=== PATIENT | female | born 1940 | race Caucasian/White ===

== ENCOUNTER 2020-07-01 12:38 | Outpatient (REF) | payer MEDICAID, SELFPAY ==
--- NOTE | ~2020-07-01 | MM_ITS ---
EXAMINATION: BONE DENSITOMETRY CLINICAL INDICATION: Osteoporosis. COMPARISON: This is the patient's baseline examination. TECHNIQUE: Using a [employer] DXA System (software version: 13.1) manufactured by [employer], dual-energy x-ray absorptiometry was performed of the lumbar spine and left hip. The images are of good technical quality. Summary results are attached. FINDINGS: AP SPINE L1-L4: BMD 0.758 g/cm2, Z-score -1.5, T-score -3.5, osteoporosis. LEFT FEMUR, NECK: BMD 0.754 g/cm2, Z-score 0.1, T-score -2.0, osteopenia. LEFT FEMUR, TOTAL: BMD 0.756 g/cm2, Z-score 0.0, T-score -2.0, osteopenia. IDENTIFIED RISK FACTORS: Menopause, thiazide. HISTORY OF FRACTURE: None listed. MEDICATIONS: Calcium supplements or multivitamin. MM/XR DEXA axial skeleton IMPRESSION: 1. DIAGNOSIS: Osteoporosis based on the lowest T-score value of -3.5 in the lumbar spine applying World Health Organization criteria. 2. 10-YEAR FRACTURE RISK PREDICTION, FRAX: Major osteoporotic fracture (clinical spine, forearm, hip or shoulder) 9.2%. Hip fracture 2.6%. 3. Treatment Recommendations: NOF guidelines recommend consideration for treatment in postmenopausal women and men age 50 and older presenting with the following: -A hip or vertebral (clinical or morphometric) fracture. -T-score less than or equal to -2.5 at the femoral neck or spine after appropriate evaluation to exclude secondary causes. -Low bone mass at the hip or spine and a 10-year fracture probability by FRAX of greater than or equal to 3% for hip fracture or greater than or equal to 20% for major osteoporotic fracture based on the [place] adapted WHO algorithm. 4. Other Recommendations: All treatment decisions require clinical judgment and consideration of individual patient factors, including patient preferences, comorbidities, previous drug use, risk factors not captured in the FRAX model (e.g. frailty, falls, vitamin D deficiency, increased bone turnover, interval significant decline in bone density) and possible under or overestimation of fracture risk by FRAX. Additional medical evaluation for secondary cause of low bone mineral density may be appropriate. FUTURE SCAN RECOMMENDATION: People with diagnosed cases of osteoporosis or at high risk for fracture should have regular bone mineral density tests. For patients eligible for Medicare, routine testing is allowed once every 2 years. The testing frequency can be increased to one year for patients who have rapidly progressing disease, those who are receiving or discontinuing medical therapy to restore bone mass, or have additional risk factors.
== END 2020-07-01 12:39 | disposition home or self-care (01) ==
LOC: HO.MAMMO 12:38
PROVIDERS: PCP Internal Medicine; Visit Provider Internal Medicine
DX: Z13.820 Encounter for screening for osteoporosis (principal); M81.0 Age-related osteoporosis without current pathological fracture; Z78.0 Asymptomatic menopausal state; Z79.899 Other long term (current) drug therapy
CPT/HCPCS: 77080

== ENCOUNTER 2021-04-25 10:44 | Emergency (ER) | payer MEDICAID, SELFPAY ==
--- NOTE | ~2021-04-25 | CT_ITS ---
EXAMINATION: CT ABDOMEN AND PELVIS WITH CONTRAST CLINICAL INFORMATION: Bilateral flank pain COMPARISON: None TECHNIQUE: Multidetector volumetric images were obtained from the superior aspect of the liver through the pubic symphysis following administration 85 mL of Omnipaque 350 intravenous contrast. Sagittal and coronal reformatted images were obtained on the technologist's workstation. Oral contrast: Yes This CT examination was performed using dose optimization techniques as appropriate, variously including the following: *Automated exposure control *Adjustment of mA and/or kV according to patient size (this includes techniques or standardized protocols for targeted exams where dose is matched to indication/reason for exam; i.e. extremities or head) *Use of iterative reconstruction technique DLP: 385 mGy-cm FINDINGS: LUNG BASES: The visualized lung bases are unremarkable. LIVER, GALLBLADDER, AND BILIARY TREE: The liver is normal in size, shape, and attenuation. No focal hepatic lesion or biliary ductal dilatation is present. The gallbladder is unremarkable with no evidence of radiopaque gallstones, gallbladder wall thickening, or obvious pericholecystic inflammatory changes. PANCREAS: Unremarkable. SPLEEN: Unremarkable. ADRENAL GLANDS: Unremarkable. KIDNEYS AND URETERS: The kidneys are normal in size, shape, and attenuation. No hydronephrosis, hydroureter, or calculi seen. No perinephric stranding. BLADDER: Unremarkable. GASTROINTESTINAL TRACT: There is mild diverticulosis of the colon. No evidence of diverticulitis The small and large bowel are otherwise unremarkable. The appendix is is not seen. There are no inflammatory changes seen in the right lower quadrant. ABDOMINAL WALL: No significant hernia is appreciated. LYMPH NODES: Normal. VASCULAR: Unremarkable. PELVIC VISCERA: Unremarkable. OSSEOUS STRUCTURES: There is a mild scoliosis and degenerative changes of the spine. CT/CT abdomen pelvis w con IMPRESSION: No stone or hydronephrosis seen. Mild diverticulosis. No evidence of diverticulitis. Fleischner guidelines were followed.
[2021-04-25 11:58] VITALS: BP 147/63; PULSE 73; RESP 18; TEMP 36.9; O2SAT 98; BMI 23.3
--- NOTE | 2021-04-25 12:03 | ECG_ITS ---
Test Reason : ABD PAIN Blood Pressure : / mmHG Vent. 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
--- NOTE | 2021-04-25 12:20 | ED.GENADULT ---
HPI - General Adult General Chief complaint: General Medical Stated complaint: Back/abd pain Time Seen by Provider: 04/25/21 12:38 Source: patient Mode of arrival: ambulatory Limitations: no limitations History of Present Illness HPI narrative: 81-year-old female with past medical history of cardiac stent presents to the ED for back pain and lower bilateral flank pain that is worse on movement. Patient states also constipation. Patient states having both symptoms for the past 4 days. Patient states she 1st felt the lower back bilateral flank pain while doing multiple sets of sit-ups. Daughter states her mom is still active doing extraneous exercises such as sit-ups lying flat and than trying to touch her toes while laying flat and pushups. Patient states every time she bends down she also has back pain. Patient denies any dysuria, hematuria, fever, chills, blunt trauma chest pain, or shortness of breath. Patient states lower abdominal cramping due to constipation for the past 3 days. Patient states no nausea or vomiting. Related Data Home Medications Medication Instructions Recorded Confirmed alendronate 70 mg tablet 70 mg PO MORENO@0630 04/25/21 04/25/21 aspirin 81 mg chewable tablet 81 mg PO DAILY 04/25/21 04/25/21 atorvastatin 80 mg tablet 80 mg PO DAILY 04/25/21 04/25/21 cholecalciferol (vitamin D3) 25 25 mcg PO DAILY 04/25/21 04/25/21 mcg (1,000 unit) capsule clopidogrel 75 mg tablet 75 mg PO DAILY 04/25/21 04/25/21 hydrochlorothiazide 12.5 mg tablet 12.5 mg PO DAILY 04/25/21 04/25/21 metoprolol succinate 25 mg 25 mg PO DAILY 04/25/21 04/25/21 tablet,extended release 24 hr Previous Rx's Medication Instructions Recorded acetaminophen 325 mg capsule 325 mg PO QID PRN 7 Days #28 cap 04/25/21 (Tylenol) cyclobenzaprine 10 mg tablet 10 mg PO BEDTIME PRN 9 Days #9 tab 04/25/21 prednisone 20 mg tablet 40 mg PO DAILY 5 Days #10 tab 04/25/21 Allergies Allergy/AdvReac Type Severity Reaction Status Date / Time No Known Allergies Allergy Unverified 11/05/19 19:53 [No Known Allergies*] Review of Systems Review of Systems: Low back bilateral flank pain worse on movement. And constipation for the past 3 days Yes all other systems are reviewed and are negative [facility] Past Medical History Medical History (Updated 04/25/21 @ 18:37 by GLADYS Linton) Accelerated hypertension Surgical History (Updated 04/25/21 @ 12:02 by Elise Mann) Stented coronary artery Social History Social History Patient Tobacco Use Status: Never used Tobacco Use of substances other than those prescribed or required for medical reasons: No Advance Directives: No Advance Directives Information Provided: Yes Physical Exam ED Vital Signs: Vital Signs - 24 hr 04/25/21 11:58 04/25/21 12:48 04/25/21 13:56 Temperature 98.4 F 98.1 F Pulse Rate 73 74 71 Respiratory Rate 18 16 18 Blood Pressure 147/63 H 167/71 H 146/73 H Pulse Oximetry 98 97 98 04/25/21 15:21 04/25/21 17:27 Temperature 98.4 F 97.7 F Pulse Rate 68 72 Respiratory Rate 12 14 Blood Pressure 141/62 H 149/67 H Pulse Oximetry 97 98 BMI result Body Mass Index 23.3 Const General: cooperative, healthy appearing, comfortable, no acute distress, well developed, alert, awake and Physically active Orientation/consciousness: patient oriented x3 HENMT Head: Yes normal to inspection, Yes No palpable skull fracture present, Yes normocephalic, Yes atraumatic and No abrasion Eyes General: appearance normal, both eyes and all related structures Neck Neck: Yes normal visual inspection, Yes full ROM, Yes no lymphadenopathy, Yes no meningeal signs, Yes trachea midline, Yes supple, No anterior neck swelling and No tender Chest Chest palpation & inspection: normal inspection of the chest and normal palpation of entire chest wall Resp Effort & Inspection: normal respiratory effort and able to speak in complete sentences Auscultation: clear to auscultation bilaterally Cardio Jugular venous distension: no JVD Heart sounds: S1 normal heart sound present and S2 normal heart sound present GI Inspection: Yes normal to inspection and No abdominal wall ecchymosis Palpation (GI): Tenderness to palpation present (GI) (Mild) in the LLQ and in the RLQ, no guarding and not rigid General: No CVA tenderness and Yes no CVA tenderness Back/Spine/Pelvis Other: Negative for spine tenderness. Positive for lower back lower flank pain on range of motion Back: no CVA tenderness, No CVA tenderness and No back tenderness Skin General skin exam: no rashes or lesions noted and elasticity normal Neuro General: patient oriented x3, gait normal, no meningeal signs and CN's II-XI intact bilaterally Cranial nerves: Yes CN's II-XII intact bilaterally Extrem General: Yes normal to inspection and Yes full ROM Psych Appearance: grossly normal, well kempt and not disheveled Course Course Course Narrative: Symptoms most most likely due to back strain from exercising but will do medical workup due to age Reevaluation(s) Reevaluation #1: EKG negative STEMI. Both troponins were negative. UA negative for UTI. COVID swab negative. D-dimer negative. Wells criteria 0. Patient is not having any chest pain. Abdominal CT scan came back negative for any medical/surgical emergency. Negative for any fractures, but does shows scolios and degenerative arthritis. Patient is safe for discharge. Patient felt better after Toradol and slept in bed comfortably during ED visit Time: 18:33 Medical Decision Making MDM Narrative Medical decision making narrative: Back strain. Degenerate arthritis Lab Data Result diagrams: 04/25/21 13:01 04/25/21 13:01 Labs: Lab Results 04/25/21 04/25/21 04/25/21 Range/Units 12:15 13:01 13:01 WBC 8.8 (4.8-10.8) X10*3/uL RBC 4.24 (4.20-5.50) X10*6/uL Hgb 12.1 (12.0-16.0) g/dl Hct 37.1 (37.0-47.0) % MCV 87.5 (80.0-98.0) fL MCH 28.5 (27.0-33.0) pg MCHC 32.6 (31.0-35.0) g/dl RDW 13.3 (11.0-16.0) % Plt Count 180 (160-400) X10*3/uL MPV 10.9 (9.4-12.3) fL Immature Gran % (Auto) 0.2 (0.0-0.4) % Neut % (Auto) 68.4 (45-73) % Lymph % (Auto) 23.9 (20-40) % Anderson % (Auto) 7.1 (2-11) % Eos % (Auto) 0.3 (0-4) % Baso % (Auto) 0.1 (0-2) % Lymph # (Auto) 2.1 (1.2-4.9) X10*3/uL Anderson # (Auto) 0.6 (0.1-1.2) X10*3/uL Eos # (Auto) 0.0 (0.0-0.4) X10*3/uL Baso # (Auto) 0.0 (0.0-0.2) X10*3/uL Abs Immat Gran (auto) 0.02 (0.00-0.03) X10*3/uL Absolute Neuts (auto) 6.0 (2.0-8.3) x10*3/uL Absolute Nucleated RBC 0.000 (0.0-0.012) X10*3/uL Nucleated RBC % (auto) 0.0 (0.0-0.2) /100WBC PT (9.9-13.0) SEC INR (0.9-1.1) APTT (24.1-38.0) SEC D-Dimer High Sensitivty NG/ML Sodium (135-145) mmol/L Potassium (3.3-5.1) mmol/L Chloride (96-108) mmol/L Carbon Dioxide (22-29) mmol/L Anion Gap (12-20) BUN (9-16) mg/dL Creatinine (0.5-1.4) mg/dL Estim Creat Clear Calc Estimated GFR Random Glucose (60-115) mg/dL Calcium (8.4-10.2) mg/dL Total Bilirubin (0.0-1.0) mg/dL Direct Bilirubin (0.0-0.5) mg/dL AST (5-31) U/L ALT (0-31) U/L Alkaline Phosphatase (39-117) U/L Troponin I High Sens (<3.5-17.0) ng/L Total Protein (6.5-8.0) g/dL Albumin (3.5-5.0) g/dL Lipase (8-78) U/L Urine Color YELLOW Urine Appearance CLEAR Urine pH 7.0 (5.0-8.0) Ur Specific [place] 1.015 (1.005-1.025) Urine Protein NEG (NEG-TRACE) MG/DL Urine Glucose (UA) NEG (NEG) MG/DL Urine Ketones NEG (NEG) MG/DL Urine Blood NEG (NEG) Urine Nitrite NEG (NEG) Ur Leukocyte Esterase NEG (NEG) COVID-19 (CHRISSY) Negative (Negative) COVID-19 Clin Com See Note 04/25/21 04/25/21 04/25/21 Range/Units 13:01 13:01 13:01 WBC (4.8-10.8) X10*3/uL RBC (4.20-5.50) X10*6/uL Hgb (12.0-16.0) g/dl Hct (37.0-47.0) % MCV (80.0-98.0) fL MCH (27.0-33.0) pg MCHC (31.0-35.0) g/dl RDW (11.0-16.0) % Plt Count (160-400) X10*3/uL MPV (9.4-12.3) fL Immature Gran % (Auto) (0.0-0.4) % Neut % (Auto) (45-73) % Lymph % (Auto) (20-40) % Anderson % (Auto) (2-11) % Eos % (Auto) (0-4) % Baso % (Auto) (0-2) % Lymph # (Auto) (1.2-4.9) X10*3/uL Anderson # (Auto) (0.1-1.2) X10*3/uL Eos # (Auto) (0.0-0.4) X10*3/uL Baso # (Auto) (0.0-0.2) X10*3/uL Abs Immat Gran (auto) (0.00-0.03) X10*3/uL Absolute Neuts (auto) (2.0-8.3) x10*3/uL Absolute Nucleated RBC (0.0-0.012) X10*3/uL Nucleated RBC % (auto) (0.0-0.2) /100WBC PT 12.2 (9.9-13.0) SEC INR 1.1 (0.9-1.1) APTT 38.5 H (24.1-38.0) SEC D-Dimer High Sensitivty < 150 NG/ML Sodium 131 L (135-145) mmol/L Potassium 4.1 (3.3-5.1) mmol/L Chloride 95 L (96-108) mmol/L Carbon Dioxide 26 (22-29) mmol/L Anion Gap 14 (12-20) BUN 8 L (9-16) mg/dL Creatinine 0.71 (0.5-1.4) mg/dL Estim Creat Clear Calc 50.7 Estimated GFR > 60 Random Glucose 96 (60-115) mg/dL Calcium 9.1 (8.4-10.2) mg/dL Total Bilirubin 0.6 (0.0-1.0) mg/dL Direct Bilirubin 0.3 (0.0-0.5) mg/dL AST 33 H (5-31) U/L ALT 40 H (0-31) U/L Alkaline Phosphatase 91 (39-117) U/L Troponin I High Sens 7.1 (<3.5-17.0) ng/L Total Protein 7.3 (6.5-8.0) g/dL Albumin 4.0 (3.5-5.0) g/dL Lipase 34 (8-78) U/L Urine Color Urine Appearance Urine pH (5.0-8.0) Ur Specific [place] (1.005-1.025) Urine Protein (NEG-TRACE) MG/DL Urine Glucose (UA) (NEG) MG/DL Urine Ketones (NEG) MG/DL Urine Blood (NEG) Urine Nitrite (NEG) Ur Leukocyte Esterase (NEG) COVID-19 (CHRISSY) (Negative) COVID-19 Clin Com 04/25/21 Range/Units 17:27 WBC (4.8-10.8) X10*3/uL RBC (4.20-5.50) X10*6/uL Hgb (12.0-16.0) g/dl Hct (37.0-47.0) % MCV (80.0-98.0) fL MCH (27.0-33.0) pg MCHC (31.0-35.0) g/dl RDW (11.0-16.0) % Plt Count (160-400) X10*3/uL MPV (9.4-12.3) fL Immature Gran % (Auto) (0.0-0.4) % Neut % (Auto) (45-73) % Lymph % (Auto) (20-40) % Anderson % (Auto) (2-11) % Eos % (Auto) (0-4) % Baso % (Auto) (0-2) % Lymph # (Auto) (1.2-4.9) X10*3/uL Anderson # (Auto) (0.1-1.2) X10*3/uL Eos # (Auto) (0.0-0.4) X10*3/uL Baso # (Auto) (0.0-0.2) X10*3/uL Abs Immat Gran (auto) (0.00-0.03) X10*3/uL Absolute Neuts (auto) (2.0-8.3) x10*3/uL Absolute Nucleated RBC (0.0-0.012) X10*3/uL Nucleated RBC % (auto) (0.0-0.2) /100WBC PT (9.9-13.0) SEC INR (0.9-1.1) APTT (24.1-38.0) SEC D-Dimer High Sensitivty NG/ML Sodium (135-145) mmol/L Potassium (3.3-5.1) mmol/L Chloride (96-108) mmol/L Carbon Dioxide (22-29) mmol/L Anion Gap (12-20) BUN (9-16) mg/dL Creatinine (0.5-1.4) mg/dL Estim Creat Clear Calc Estimated GFR Random Glucose (60-115) mg/dL Calcium (8.4-10.2) mg/dL Total Bilirubin (0.0-1.0) mg/dL Direct Bilirubin (0.0-0.5) mg/dL AST (5-31) U/L ALT (0-31) U/L Alkaline Phosphatase (39-117) U/L Troponin I High Sens 8.3 (<3.5-17.0) ng/L Total Protein (6.5-8.0) g/dL Albumin (3.5-5.0) g/dL Lipase (8-78) U/L Urine Color Urine Appearance Urine pH (5.0-8.0) Ur Specific [place] (1.005-1.025) Urine Protein (NEG-TRACE) MG/DL Urine Glucose (UA) (NEG) MG/DL Urine Ketones (NEG) MG/DL Urine Blood (NEG) Urine Nitrite (NEG) Ur Leukocyte Esterase (NEG) COVID-19 (CHRISSY) (Negative) COVID-19 Clin Com Discharge Plan Discharge Clinical Impression: Low back strain, Degenerative arthritis Instructions: Muscle Strain (ED), Osteoarthritis (ED), Low Back Strain (ED), Back Pain (ED) Additional Instructions: Moreno an?lisis de ivonne y electrocardiograma resultaron negativos para ataques card?acos. Moreno an?lisis de ivonne result? negativo para cualquier signo de deshidrataci?n. Los electrolitos fueron normales. La orina result? negativa para infecci?n. La tomograf?a computarizada abdominal no mostr? ninguna etiolog?a emergente m?dica/quir?rgica. La tomograf?a computarizada abdominal muestra artritis de la columna. Debido a que est? tomando asprin y plavix, solo debe musa tylenol. Tambi?n prescribir? prednisona y ciclobenzaprina. Por favor, chaka un seguimiento con el PCP. Prescriptions: New prednisone 20 mg tablet 40 mg PO DAILY 5 Days Qty: 10 0RF cyclobenzaprine 10 mg tablet 10 mg PO BEDTIME PRN (Reason: muscle spasm) 9 Days Qty: 9 0RF acetaminophen [Tylenol] 325 mg capsule 325 mg PO QID PRN (Reason: pain) 7 Days Qty: 28 0RF No Action atorvastatin 80 mg tablet 80 mg PO DAILY 0RF alendronate 70 mg tablet 70 mg PO MORENO@0630 0RF clopidogrel 75 mg tablet 75 mg PO DAILY 0RF aspirin 81 mg tablet,chewable 81 mg PO DAILY 0RF metoprolol succinate 25 mg tablet extended release 24 hr 25 mg PO DAILY 0RF cholecalciferol (vitamin D3) 25 mcg (1,000 unit) capsule 25 mcg PO DAILY 0RF hydrochlorothiazide 12.5 mg tablet 12.5 mg PO DAILY 0RF Print Language: Chinese
[2021-04-25 12:31] LABS: Appearance Urine CLEAR; Color Urine YELLOW; Glucose Urine UA NEG (NEG); Leukocyte Esterase Urine NEG (NEG); Nitrite Urine NEG (NEG); Specific Gravity - Urine 1.015 (1.005-1.025); Urine Blood NEG (NEG); Urine Ketones NEG (NEG); Urine Protein NEG (NEG-TRACE)
[2021-04-25 12:48] VITALS: BP 167/71; PULSE 74; RESP 16; O2SAT 97
[2021-04-25 13:10] LABS: MANUAL DIFF FLAG NO
[2021-04-25 13:15] LABS: Basophils Percent Auto 0.1 % (0-2); Eosinophils Percent Auto 0.3 % (0-4); Hematocrit 37.1 % (37.0-47.0); Hemoglobin 12.1 g/dl (12.0-16.0); Imm Gran Abs Auto 0.02 X10*3/uL (0.00-0.03); Imm Gran Pct Auto 0.2 % (0.0-0.4); Lymphocytes Absolute Auto 2.1 X10*3/uL (1.2-4.9); Lymphocytes Percent Auto 23.9 % (20-40); Mean Corpuscular HGB Conc 32.6 g/dl (31.0-35.0); Mean Corpuscular Hemoglobin 28.5 pg (27.0-33.0); Mean Corpuscular Volume 87.5 fL (80.0-98.0); Mean Platelet Volume 10.9 fL (9.4-12.3); Monocytes Absolute Auto 0.6 X10*3/uL (0.1-1.2); Monocytes Percent Auto 7.1 % (2-11); Neutrophils Percent Auto 68.4 % (45-73); Platelet Count 180 X10*3/uL (160-400); Red Blood Count 4.24 X10*6/uL (4.20-5.50); Red Cell Distribution Width 13.3 % (11.0-16.0); White Blood Count 8.8 X10*3/uL (4.8-10.8)
[2021-04-25 13:20] LABS: INTERNATIONAL NORM RATIO 1.1 (0.9-1.1); Prothrombin Time 12.2 SEC (9.9-13.0)
[2021-04-25 13:27] LABS: COVID-19 Test Negative (Negative); IDNOW Serial# 16C4AD1C
[2021-04-25 13:35] LABS: Alanine Aminotransferase 40 U/L (0-31); Alkaline Phosphatase 91 U/L (39-117); Aspartate Amino Transferase 33 U/L (5-31); Bilirubin Direct 0.3 mg/dL (0.0-0.5); Bilirubin Total 0.6 mg/dL (0.0-1.0); Lipase 34 U/L (8-78); Total Protein 7.3 g/dL (6.5-8.0)
[2021-04-25 13:37] LABS: Troponin-I High Sensitivity 7.1 ng/L (<3.5-17.0)
[2021-04-25 13:52] LABS: Partial Thromboplastin Time 38.5 SEC (24.1-38.0)
[2021-04-25 13:53] LABS: D Dimer High Sensitivity < 150 NG/ML
[2021-04-25 13:56] VITALS: BP 146/73; PULSE 71; RESP 18; TEMP 36.7; O2SAT 98
--- NOTE | 2021-04-25 13:56 | PC.NURSE ---
resting quietly. reports upper back and side pain . denies SOB/diaphoresis/nausea
--- NOTE | 2021-04-25 14:05 | PC.NURSE ---
Pt up to BR, grimaces with movement. This RN requests pain meds from [facility].
[2021-04-25] MEDS: Ketorolac Tromethamine 30 MG/ML VIAL IVPUSH (14:40)
[2021-04-25 15:21] VITALS: BP 141/62; PULSE 68; RESP 12; TEMP 36.9; O2SAT 97
[2021-04-25 15:50] LABS: Anion Gap 14 (12-20); Blood Urea Nitrogen 8 mg/dL (9-16); Calcium 9.1 mg/dL (8.4-10.2); Carbon Dioxide 26 mmol/L (22-29); Chloride 95 mmol/L (96-108); Creatinine Clr Calc Pharmacy 50.7; Estimated Glomerular Filt Rate > 60; Glucose Random 96 mg/dL (60-115); Potassium 4.1 mmol/L (3.3-5.1); Sodium 131 mmol/L (135-145)
[2021-04-25] MEDS: iohexoL 350 MG/ML 100 ML INFUS..BTL IV (16:29)
[2021-04-25 17:27] VITALS: BP 149/67; PULSE 72; RESP 14; TEMP 36.5; O2SAT 98
[2021-04-25 18:03] LABS: Troponin-I High Sensitivity 8.3 ng/L (<3.5-17.0)
[2021-04-25 19:05] VITALS: BP 131/65; PULSE 70; RESP 13; O2SAT 97
== END 2021-04-25 19:17 | disposition home or self-care (01) ==
PROVIDERS: Physician Assistant; Emergency Provider Emergency Medicine Emergency Medical Services; PCP Internal Medicine
DX: S39.012A Strain of muscle, fascia and tendon of lower back, initial encounter (principal); X50.1XXA Overexertion from prolonged static or awkward postures, initial encounter; M47.816 Spondylosis without myelopathy or radiculopathy, lumbar region; Z20.822 Contact with and (suspected) exposure to COVID-19; Y93.B2 Activity, push-ups, pull-ups, sit-ups; Y92.9 Unspecified place or not applicable; Y99.9 Unspecified external cause status
CPT/HCPCS: 36415; 74177; 80048; 80076; 81003; 83690; 84484; 85025; 85379; 85610; 85730; 87635; 93005; 96374; 99284; 99285; J1885; Q9967

== ENCOUNTER 2022-12-29 07:11 | Outpatient (REF) | payer MEDICAID, SELFPAY ==
[2022-12-29 07:26] LABS: MANUAL DIFF FLAG NO
[2022-12-29 07:39] LABS: Basophils Percent Auto 0.2 % (0-2); Eosinophils Absolute Auto 0.1 X10*3/uL (0.0-0.4); Eosinophils Percent Auto 2.4 % (0-4); Hematocrit 37.9 % (37.0-47.0); Hemoglobin 12.6 g/dl (12.0-16.0); Imm Gran Abs Auto 0.01 X10*3/uL (0.00-0.03); Imm Gran Pct Auto 0.2 % (0.0-0.4); Lymphocytes Absolute Auto 2.2 X10*3/uL (1.2-4.9); Lymphocytes Percent Auto 41.2 % (20-40); Mean Corpuscular HGB Conc 33.2 g/dl (31.0-35.0); Mean Corpuscular Hemoglobin 30.1 pg (27.0-33.0); Mean Corpuscular Volume 90.7 fL (80.0-98.0); Mean Platelet Volume 11.3 fL (9.4-12.3); Monocytes Absolute Auto 0.5 X10*3/uL (0.1-1.2); Monocytes Percent Auto 8.6 % (2-11); Neutrophils Absolute Auto 2.6 x10*3/uL (2.0-8.3); Neutrophils Percent Auto 47.4 % (45-73); Platelet Count 182 X10*3/uL (160-400); Red Blood Count 4.18 X10*6/uL (4.20-5.50); Red Cell Distribution Width 13.2 % (11.0-16.0); White Blood Count 5.4 X10*3/uL (4.8-10.8)
[2022-12-29 08:16] LABS: Alanine Aminotransferase 25 U/L (0-31); Alkaline Phosphatase 81 U/L (39-117); Anion Gap 13 (12-20); Aspartate Amino Transferase 29 U/L (5-31); Bilirubin Total 0.5 mg/dL (0.0-1.0); Blood Urea Nitrogen 20 mg/dL (9-16); Calcium 9.7 mg/dL (8.4-10.2); Carbon Dioxide 29 mmol/L (22-29); Chloride 105 mmol/L (96-108); Cholesterol 120 mg/dL (<200); Estimated Glomerular Filt Rate > 60; Glucose Random 98 mg/dL (60-115); HDL Cholesterol 38 mg/dL (>40); LDL Cholesterol Calculated 71 mg/dL (<100); Potassium 3.9 mmol/L (3.3-5.1); Sodium 143 mmol/L (135-145); Total Protein 7.7 g/dL (6.5-8.0); Triglycerides 55 mg/dL (<150)
[2022-12-29 08:31] LABS: TSH reflex Free T4 2.78 uIU/mL (0.32-4.0)
== END 2022-12-29 07:12 | disposition home or self-care (01) ==
LOC: HO.LAB 07:11
PROVIDERS: PCP Internal Medicine; Visit Provider Internal Medicine
DX: I10 Essential (primary) hypertension (principal)
CPT/HCPCS: 36415; 80053; 80061; 84443; 85025

== ENCOUNTER 2023-01-23 12:47 | Outpatient (REF) | payer MEDICAID, SELFPAY ==
--- NOTE | ~2023-01-23 | US_ITS ---
EXAMINATION: US PELVIS COMPLETE CLINICAL INFORMATION: Pelvic pain COMPARISON: CT abdomen pelvis 04/25/2021 TECHNIQUE: Transabdominal and transvaginal imaging was performed. FINDINGS: The uterus is of normal size with multiple calcified myometrial vessels measuring 5.7 x 2.3 x 4.2 cm. A regular homogeneous endometrium is identified measuring 0.3 cm. Both ovaries are of normal size and echogenicity. The right measures 1.5 x 0.9 x 0.8 cm for a volume of 0.5 mL. The left measures 1.4 x 1.6 x 0.9 cm for a volume of 1.1 mL. There is no pelvic free fluid. US/US pelvic and transvaginal IMPRESSION: Unremarkable pelvic ultrasound.
== END 2023-01-23 12:48 | disposition home or self-care (01) ==
LOC: HO.HMGCX 12:47
PROVIDERS: PCP Internal Medicine; Visit Provider Internal Medicine
DX: R10.30 Lower abdominal pain, unspecified (principal); I25.10 Atherosclerotic heart disease of native coronary artery without angina pectoris; E78.2 Mixed hyperlipidemia
CPT/HCPCS: 76830; 76856

== ENCOUNTER 2023-07-06 09:20 | Outpatient (REF) | payer MEDICAID, SELFPAY ==
[2023-07-06 11:15] LABS: Alanine Aminotransferase 16 U/L (0-31); Albumin Level 4.2 g/dL (3.5-5.0); Alkaline Phosphatase 77 U/L (39-117); Anion Gap 13 (12-20); Aspartate Amino Transferase 24 U/L (5-31); Bilirubin Total 0.5 mg/dL (0.0-1.0); Blood Urea Nitrogen 14 mg/dL (9-16); Calcium 9.4 mg/dL (8.4-10.2); Carbon Dioxide 29 mmol/L (22-29); Chloride 104 mmol/L (96-108); Cholesterol 144 mg/dL (<200); Estimated Glomerular Filt Rate > 60; Glucose Random 97 mg/dL (60-115); HDL Cholesterol 41 mg/dL (>40); LDL Cholesterol Calculated 89 mg/dL (<100); Potassium 4.1 mmol/L (3.3-5.1); Sodium 142 mmol/L (135-145); Total Protein 8.3 g/dL (6.5-8.0); Triglycerides 71 mg/dL (<150)
== END 2023-07-06 09:21 | disposition home or self-care (01) ==
LOC: HO.LAB 09:20
PROVIDERS: PCP Internal Medicine; Visit Provider Internal Medicine
DX: E78.2 Mixed hyperlipidemia (principal)
CPT/HCPCS: 36415; 80053; 80061

== ENCOUNTER 2023-10-04 17:55 | Emergency (ER) | payer MEDICAID, SELFPAY ==
--- NOTE | ~2023-10-04 | XR_ITS ---
EXAMINATION: XR LUMBOSACRAL SPINE CLINICAL INFORMATION: Right-sided lower back pain. COMPARISON: CT abdomen/pelvis dated 04/25/2021. TECHNIQUE: Three views of the lumbosacral spine. FINDINGS: Rotational levocurvature of the lumbar spine, unchanged. The lumbar lordosis is maintained. No acute fracture or subluxation. No loss of vertebral body height. Multilevel loss of intervertebral disc height with endplate osteophytes, most prominent at L5-S1. Multilevel bilateral facet arthropathy. Findings are slightly progressed when compared to the prior examination. No abnormal soft tissue calcification. XR/XR lumbar spine 2-3V IMPRESSION: 1. Rotational levocurvature of the lumbar spine, unchanged. 2. Multilevel degenerative disc disease and bilateral facet arthropathy, most prominent at L5-S1.
--- NOTE | 2023-10-04 18:52 | ED_ITS ---
HPI - Back Pain/Injury General Chief Complaint: Back Pain/Injury Stated Complaint: low back pain Time Seen by Provider: 10/04/23 21:36 Related Data Home Medications ?Medication ?Instructions ?Recorded ?Confirmed alendronate 70 mg tablet 70 mg PO MORENO@0630 04/25/21 04/25/21 aspirin 81 mg chewable tablet 81 mg PO DAILY 04/25/21 04/25/21 atorvastatin 80 mg tablet 80 mg PO DAILY 04/25/21 04/25/21 cholecalciferol (vitamin D3) 25 25 mcg PO DAILY 04/25/21 04/25/21 mcg (1,000 unit) capsule clopidogrel 75 mg tablet 75 mg PO DAILY 04/25/21 04/25/21 hydrochlorothiazide 12.5 mg tablet 12.5 mg PO DAILY 04/25/21 04/25/21 metoprolol succinate 25 mg 25 mg PO DAILY 04/25/21 04/25/21 tablet,extended release 24 hr Previous Rx's ?Medication ?Instructions ?Recorded acetaminophen 325 mg capsule 325 mg PO QID PRN pain 7 days #28 04/25/21 (Tylenol) caps cyclobenzaprine 10 mg tablet 10 mg PO BEDTIME PRN muscle spasm 04/25/21 9 days #9 tabs prednisone 20 mg tablet 40 mg (2 x 20 mg) PO DAILY 5 days 04/25/21 #10 tabs lidocaine 4 % topical patch 1 patch topical DAILY PRN pain #15 10/04/23 (Salonpas (lidocaine)) ea Allergies Allergy/AdvReac Type Severity Reaction Status Date / Time 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, Allergy Anaphylaxis Verified 10/04/23 19:01 live, anabel cell [From Dengvaxia (PF)] [facility] Past Medical History Medical History (Updated 10/05/23 @ 00:01 by Minerva Tipton) Accelerated hypertension Surgical History (Updated 04/25/21 @ 12:02 by Elise Mann) Stented coronary artery Social History Social History Patient Tobacco Use Status: Never used Tobacco Smoked in Last 30 Days: No Use of substances other than those prescribed or required for medical reasons: No Advance Directives: No Advance Directives Information Provided: No Physical Exam Vital Signs: Vital Signs: Last Vital Signs Temp 0 F L 10/04/23 22:15 Pulse 0 L 10/04/23 22:15 Resp 0 L 10/04/23 22:15 BP 0/0 L 10/04/23 22:15 Pulse Ox 0 L 10/04/23 22:15 O2 Del Method Room Air 10/04/23 22:15 BMI result Body Mass Index 23.0 Course Course Course Narrative: This is a Rapid Medical Exam performed in triage by Brittany Lawson PA-C. Full HPI, ROS and PE to be performed by primary ED provider. 83 year-old F w/ PMHx CAD s/p stents presenting to the ED c/o right sided low back pain x2 weeks s/p reaching out for something. denies injury/fall, urinary sx/incontinence, fever PE: Slow steady gait. +R lower lumbar/paraspinal ttp. no rash/erythema/ecchymosis Plan: XR, pain control Medications Administered Discontinued Medications Generic Name Dose Route Start Last Admin Trade Name Freq PRN Reason Stop Dose Admin Acetaminophen 650 mg 10/04/23 21:51 10/04/23 22:11 Acetaminophen 325 Mg Tablet PO 10/04/23 21:52 650 mg ONCE ONE Administration Lidocaine 1 patch 10/04/23 21:51 10/04/23 22:12 Lidocaine 4 % Patch Adh..Patch TRANSDERMA 10/04/23 21:52 1 patch ONCE ONE Administration Protocol Discharge Plan Discharge Clinical Impression: Low back pain Patient Disposition: Home, Self-Care Instructions: Acute Low Back Pain (ED) Additional Instructions: Take Tylenol for pain Apply Lidoderm patch at the painful area once a day Follow with your PCP Prescriptions: New lidocaine [Salonpas (lidocaine)] 4 % adhesive patch,medicated 1 patch topical DAILY PRN (Reason: pain) Qty: 15 0RF Rx Instructions: may leave on for up to 12 hrs No Action atorvastatin 80 mg tablet 80 mg PO DAILY alendronate 70 mg tablet 70 mg PO MORENO@0630 clopidogrel 75 mg tablet 75 mg PO DAILY aspirin 81 mg tablet,chewable 81 mg PO DAILY metoprolol succinate 25 mg tablet extended release 24 hr 25 mg PO DAILY cholecalciferol (vitamin D3) 25 mcg (1,000 unit) capsule 25 mcg PO DAILY hydrochlorothiazide 12.5 mg tablet 12.5 mg PO DAILY prednisone 20 mg tablet 40 mg PO DAILY 5 Days Qty: 10 0RF cyclobenzaprine 10 mg tablet 10 mg PO BEDTIME PRN (Reason: muscle spasm) 9 Days Qty: 9 0RF acetaminophen [Tylenol] 325 mg capsule 325 mg PO QID PRN (Reason: pain) 7 Days Qty: 28 0RF Interventions: ED Discharge Assessment Last Done: 10/04/23 22:15 Discharge Date/Time: 10/04/23 22:15 Print Language: Vietnamese
[2023-10-04 18:55] VITALS: BP 116/62; PULSE 76; RESP 18; TEMP 36.5; O2SAT 97; BMI 23.0
[2023-10-04 22:06] VITALS: BP 118/72; PULSE 89; RESP 16; TEMP 36.9; O2SAT 97
[2023-10-04] MEDS: Acetaminophen 325 MG TABLET 650 MG PO (22:11)
[2023-10-04] MEDS: Lidocaine 4 % Patch ADH..PATCH 1 PATCH TRANSDERMA (22:12)
[2023-10-04 22:15] VITALS: BP 0/0; PULSE 0; RESP 0; TEMP -17.7; TEMP 0; O2SAT 0
== END 2023-10-04 22:15 | disposition home or self-care (01) ==
PROVIDERS: Emergency Provider Internal Medicine; PCP Internal Medicine
DX: M54.50 Low back pain, unspecified (principal)
CPT/HCPCS: 72100; 99283; 99284

== ENCOUNTER 2024-06-27 07:40 | Outpatient (REF) | payer MEDICAID, SELFPAY ==
[2024-06-27 07:51] LABS: MANUAL DIFF FLAG NO
[2024-06-27 09:11] LABS: Basophils Percent Auto 0.5 % (0-2); Eosinophils Absolute Auto 0.1 X10*3/uL (0.0-0.4); Eosinophils Percent Auto 2.3 % (0-4); Hematocrit 39.8 % (37.0-47.0); Hemoglobin 13.1 g/dl (12.0-16.0); Imm Gran Abs Auto 0.01 X10*3/uL (0.00-0.03); Imm Gran Pct Auto 0.2 % (0.0-0.4); Lymphocytes Absolute Auto 2.6 X10*3/uL (1.2-4.9); Lymphocytes Percent Auto 43.1 % (20-40); Mean Corpuscular HGB Conc 32.9 g/dl (31.0-35.0); Mean Corpuscular Hemoglobin 29.7 pg (27.0-33.0); Mean Corpuscular Volume 90.2 fL (80.0-98.0); Mean Platelet Volume 11.3 fL (9.4-12.3); Monocytes Absolute Auto 0.5 X10*3/uL (0.1-1.2); Monocytes Percent Auto 8.3 % (2-11); Neutrophils Absolute Auto 2.8 x10*3/uL (2.0-8.3); Neutrophils Percent Auto 45.6 % (45-73); Platelet Count 168 X10*3/uL (160-400); Red Blood Count 4.41 X10*6/uL (4.20-5.50); Red Cell Distribution Width 13.3 % (11.0-16.0); White Blood Count 6.1 X10*3/uL (4.8-10.8)
[2024-06-27 09:52] LABS: Alanine Aminotransferase 28 U/L (0-31); Albumin Level 4.1 g/dL (3.5-5.0); Alkaline Phosphatase 92 U/L (39-117); Anion Gap 15 (12-20); Aspartate Amino Transferase 36 U/L (5-31); Bilirubin Total 0.5 mg/dL (0.0-1.0); Blood Urea Nitrogen 17 mg/dL (9-16); Calcium 9.6 mg/dL (8.4-10.2); Carbon Dioxide 26 mmol/L (22-29); Chloride 106 mmol/L (96-108); Cholesterol 114 mg/dL (<200); Estimated Glomerular Filt Rate > 60; Glucose Random 96 mg/dL (60-115); HDL Cholesterol 43 mg/dL (>40); LDL Cholesterol Calculated 62 mg/dL (<100); Potassium 4.2 mmol/L (3.3-5.1); Sodium 143 mmol/L (135-145); Total Protein 7.9 g/dL (6.5-8.0); Triglycerides 46 mg/dL (<150)
[2024-06-27 10:14] LABS: TSH reflex Free T4 2.46 uIU/mL (0.32-4.0)
== END 2024-06-27 07:41 | disposition home or self-care (01) ==
LOC: HO.LAB 07:40
PROVIDERS: PCP Internal Medicine; Visit Provider Internal Medicine
DX: I10 Essential (primary) hypertension (principal)
CPT/HCPCS: 36415; 80053; 80061; 84443; 85025

== ENCOUNTER 2024-12-25 13:23 | Emergency (ER) | payer MEDICAID, SELFPAY ==
--- NOTE | ~2024-12-25 | CT_ITS ---
CLINICAL HISTORY: bilateral leg weakness, ataxia CT head without contrast Comparison: None provided Findings: Scattered subcortical and periventricular hypoattenuation, likely in keeping with chronic small vessel ischemic disease. Parenchymal volume loss with compensatory prominence of the ventricles and CSF spaces. No acute territorial infarction, intracranial hemorrhage, midline shift or hydrocephalus. There is no sinus or mastoid fluid. The orbits are within normal limits. No skull fracture. IMPRESSION: 1. No acute intracranial hemorrhage or territorial infarction. 2. Additional findings as described. This document has been electronically signed by: Alfredo Galindo MD on 12/25/2024 18:31:57
--- NOTE | ~2024-12-25 | XR_ITS ---
EXAMINATION: XR LUMBOSACRAL SPINE CLINICAL INFORMATION: low back pain COMPARISON: October 04, 2023 TECHNIQUE: Three views of the lumbosacral spine. FINDINGS: Atherosclerotic calcifications are present in the aorta and common iliac arteries. There are 5 nonrib-bearing lumbar segments. There is 16 degrees levoscoliosis with apex at L3-4. There is mild right lateral listhesis at L2-3 and left lateral listhesis of L4-5. No compression fracture is identified. Multilevel degenerative changes with disc space during, endplate sclerosis, osteophytes most advanced at L5-S1 and appears similar to the past study. There is also facet sclerosis and osteophytes at L3-4, L4-5 and L5-S1. XR/XR lumbar spine 2-3V IMPRESSION: Mild scoliosis, Multilevel degenerative disc disease, and facet osteoarthritis is similar to the prior study. Electronically signed by: Paul Berg MD 12/25/2024 04:39 PM [facility]
[2024-12-25 13:27] VITALS: BP 159/71; PULSE 76; RESP 18; TEMP 36.3; O2SAT 96; BMI 25.4
--- NOTE | 2024-12-25 13:32 | ED.GENADULT ---
HPI - General Adult General Chief complaint: General Medical Stated complaint: leg numbness Time Seen by Provider: 12/25/24 15:51 Source: patient, family and old records reviewed Mode of arrival: ambulatory Limitations: no limitations History of Present Illness ED Provider: MARIA L OWEN narrative: 84-year-old female with past medical history of hypertension, hyperlipidemia, coronary artery disease status post stent, osteoporosis who presents with complaint of bilateral leg weakness and numbness at the bottom of her feet this has been going on for 3 days. She denies any preceding illness, no nausea vomiting diarrhea. Her daughter does note she has a cough. She has not had any confusion or headaches. She was with her son in [place] visiting family and came home and daughter noticed her difficulty walking. When she stands up she feels the bottom of her feet are numb and she feels like she has pain in both thighs. Her daughter notes she is very active so this is unusual for the patient. The numbness has not spread or creeped up her legs. MD complaint: Leg weakness, numbness, pain Onset (ago): day(s) (3) Location: left, right and lower extremity Radiation: non-radiation Severity: moderate Quality: aching Pain Consistency: intermittent Relieving factors: none Exacerbating factors: movement Associated symptoms: weakness Treatments prior to arrival: none Related Data Home Medications ?Medication ?Instructions ?Recorded ?Confirmed alendronate 70 mg tablet 70 mg PO MORENO@0630 04/25/21 04/25/21 aspirin 81 mg chewable tablet 81 mg PO DAILY 04/25/21 04/25/21 atorvastatin 80 mg tablet 80 mg PO DAILY 04/25/21 04/25/21 cholecalciferol (vitamin D3) 25 25 mcg PO DAILY 04/25/21 04/25/21 mcg (1,000 unit) capsule clopidogrel 75 mg tablet 75 mg PO DAILY 04/25/21 04/25/21 hydrochlorothiazide 12.5 mg tablet 12.5 mg PO DAILY 04/25/21 04/25/21 metoprolol succinate 25 mg 25 mg PO DAILY 04/25/21 04/25/21 tablet,extended release 24 hr Previous Rx's ?Medication ?Instructions ?Recorded acetaminophen 325 mg capsule 325 mg PO QID PRN pain 7 days #28 04/25/21 (Tylenol) caps cyclobenzaprine 10 mg tablet 10 mg PO BEDTIME PRN muscle spasm 04/25/21 9 days #9 tabs prednisone 20 mg tablet 40 mg (2 x 20 mg) PO DAILY 5 days 04/25/21 #10 tabs lidocaine 4 % topical patch 1 patch topical DAILY PRN pain #15 10/04/23 (Salonpas (lidocaine)) ea Allergies Allergy/AdvReac Type Severity Reaction Status Date / Time 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, Allergy Anaphylaxis Verified 12/25/24 13:33 live, anabel cell (From Dengvaxia ()) Review of Systems Review of Systems: Constitutional : No Fever, No Chills, No Fatigue ENT/Mouth : No sore throat, No Rhinorrhea Eyes: No Eye Pain, No Swelling, No Redness Cardiovascular : No Chest Pain, No SOB, No Dyspnea on Exertion Respiratory : No Cough, No Sputum Gastrointestinal : No Nausea, No Vomiting, No Diarrhea, No abdominal Pain Genitourinary : No Dysuria, No Urinary Frequency, No Hematuria, Musculoskeletal : No joint pain, pos Myalgias, No Joint Swelling Skin : No Skin Lesions, No rash Neuro : pos Weakness, pos Numbness, No Dizziness, no Headache All other systems reviewed and are negative [facility] Past Medical History Attestation statement: The following information was validated with the patient. Source: old records reviewed and obtained from family Medical History Osteoporosis Coronary artery disease Hyperlipidemia Accelerated hypertension Surgical History Stented coronary artery Social History Social History Patient Tobacco Use Status: Never used Tobacco Advance Directives: No Advance Directives Information Provided: Yes Physical Exam ED Vital Signs: Vital Signs - 24 hr 12/25/24 13:27 12/25/24 16:00 12/25/24 18:00 Temperature 97.4 F Pulse Rate 76 72 78 Respiratory Rate 18 18 18 Blood Pressure 159/71 H 150/70 H 152/66 H Pulse Oximetry 96 96 97 Oxygen Delivery Method Room Air Room Air Room Air 12/25/24 20:08 Temperature 98.8 F Pulse Rate 84 Respiratory Rate Blood Pressure 148/57 H Pulse Oximetry 98 Oxygen Delivery Method Room Air BMI result Body Mass Index 25.4 Appearance: Alert. Oriented X3. No acute distress. Eyes: Pupils equal, round and reactive to light. ENT: Pharynx normal. Neck: Normal inspection. Neck supple. CVS: Normal heart rate and rhythm. Pulses normal 2+ DP pulses bilateral lower extremity feet are warm to touch. Respiratory: No respiratory distress. Breath sounds normal. Abdomen: Soft and nontender. Skin: Skin warm and dry. Normal skin color. Normal skin turgor. Extremities: No lower extremity edema. No calf ttp Neuro: Oriented X 3. No motor deficit. On exam she has 5/5 strength in both lower extremities, she states she can not feel light touch to the bottom of her feet, she has 2+ deep tendon reflexes in both patella and Achilles exam, she has no clonus on exam. When you ask her to walk she has a antalgic shuffling gait and when you ask her where it hurts she points to both thighs Course Course Course Narrative: This is an RME: Additional HPI, ROS, PE not included below will be deferred to primary provider. RME assessment and note performed by: Brokoe Knight PA-C This is a [id number]-female, CAD s/p stents, HTN, HLD, who presents to the ER with a complaint of BL leg numbness and weakness. Reports that this has been ongoing for 3 days. Also having body aches. Reporting some SOB. Plan: Labs, EKG, CXR, further ER eval needed Medications Administered Discontinued Medications Generic Name Dose Route Start Last Admin Trade Name Freq PRN Reason Stop Dose Admin Lidocaine HCl 5 ml 12/25/24 18:40 12/25/24 18:49 Lidocaine Hcl 1 % Mpf 5 Ml Vial SUBCUT 12/25/24 18:41 5 ml ONCE ONE Administration Procedures Procedure Narrative Procedure Narrative: unable to obtain LP even with US I am going to ask another provider to obtain LP Guillermina Mathews DO 12/25/241926 Lumbar Puncture Time Out Performed: Yes Patient Position: right lateral decubitus Skin Prep: Povidone-Iodine 1% Local Anesthetic: lidocaine 1% Amount of anesthesia used (mL): 3 Spinal Needle Gauge: 20G Interspace Used: L4-L5 Fluid Initially Obtained: bloody (The initial fluid was is clearly blood-tinged but this cleared. I had concern there was a small clot at the hub of the tube that persisted) Complications: none Additional Comments: The procedure was done at the L4-L5 level. I encountered a lot of what seemed to be calcified barriers in attempting to find the the spinal space. Ultimately, after several passes of the needle I was able to obtain spinal fluid that was at 1st somewhat bloody but cleared. Dr. Castro Medical Decision Making Medical Decision Making [facility] Narrative: 84-year-old female with past medical history of hypertension, hyperlipidemia, coronary artery disease status post stent, osteoporosis now here with numbness of plantar surface of both feet but she does have deep tendon reflexes intact her motor throughout both legs is 5/5, the numbness has not ascended she had no preceding URI or GI illness. She does have difficulty walking on exam. She has no back pain but given her age and history of osteoporosis I am going to obtain a lumbar x-ray to rule out compression fracture. She has no other cauda equina symptoms. She will get CT head to rule out acute stroke no unlikely unless it was a posterior. She is to get labs, urine. If her workup is negative and he might need to proceed with further workup such as CSF analysis though without a lack of ascending numbness and it being consistently on both feet it does seem less likely it could be a variant of GBS Differential Diagnosis Differential Diagnoses: The differential diagnosis associated with the presentation includes Electrolyte abnormality, urinary tract infection, rhabdo, unexplained compression fracture of the back though she has no other cauda equina symptoms, Guillain-[place] but has not climbed up but it is on the differential Admission/Observation Consideration of admission/observation: Escalation of care including admission/observation considered Her symptoms have resolved after 9 hours in the ED Her CT scan is unimpressive, her gait is back to normal, it was symmetric doubt stroke, her other labs are reassuring, her CSF is not consistent with Guillain-[place] At this time she can be discharged home Lab Data [facility] Lab Attestation statement: I reviewed the patient's lab results. CSF workup negative including meningitis/encephalitis panel CSF protein normal CSF cell count normal 12/25/24 14:04 12/25/24 14:04 Labs: Lab Results 12/25/24 12/25/24 12/25/24 Range/Units 14:04 17:30 21:45 WBC 6.7 (4.8-10.8) X10*3/uL RBC 4.16 L (4.20-5.50) X10*6/uL Hgb 12.4 (12.0-16.0) g/dl Hct 37.5 (37.0-47.0) % MCV 90.1 (80.0-98.0) fL MCH 29.8 (27.0-33.0) pg MCHC 33.1 (31.0-35.0) g/dl RDW 13.2 (11.0-16.0) % Plt Count 156 L (160-400) X10*3/uL MPV 11.2 (9.4-12.3) fL Immature Gran % (Auto) 0.1 (0.0-0.4) % Neut % (Auto) 53.0 (45-73) % Lymph % (Auto) 36.9 (20-40) % [place] % (Auto) 8.1 (2-11) % Eos % (Auto) 1.6 (0-4) % Baso % (Auto) 0.3 (0-2) % Lymph # (Auto) 2.5 (1.2-4.9) X10*3/uL [place] # (Auto) 0.5 (0.1-1.2) X10*3/uL Eos # (Auto) 0.1 (0.0-0.4) X10*3/uL Baso # (Auto) 0.0 (0.0-0.2) X10*3/uL Abs Immat Gran (auto) 0.01 (0.00-0.03) X10*3/uL Absolute Neuts (auto) 3.6 (2.0-8.3) x10*3/uL Absolute Nucleated RBC 0.000 (0.0-0.012) X10*3/uL Nucleated RBC % (auto) 0.0 (0.0-0.2) /100WBC PT 11.6 (11.2-13.5) SEC INR 0.9 (0.9-1.1) Sodium 143 (135-145) mmol/L Potassium 3.8 (3.3-5.1) mmol/L Chloride 109 H (96-108) mmol/L Carbon Dioxide 24 (22-29) mmol/L Anion Gap 14 (12-20) BUN 21 H (9-16) mg/dL Creatinine 0.86 (0.5-1.4) mg/dL Estim Creat Clear Calc 40.5 Estimated GFR > 60 Random Glucose 95 (60-115) mg/dL Calcium 9.0 D (8.4-10.2) mg/dL Magnesium 2.2 (1.6-2.6) mg/dL Total Bilirubin 0.4 (0.0-1.0) mg/dL Direct Bilirubin 0.1 (0.0-0.5) mg/dL AST 42 H (5-31) U/L ALT 29 (0-31) U/L Alkaline Phosphatase 85 (39-117) U/L Total Creatine Kinase 71 (26-140) U/L Troponin I High Sens 3.6 (<3.5-17.0) ng/L C-Reactive Protein < 0.10 (< or = 0.50) mg/dL Total Protein 7.8 (6.5-8.0) g/dL Albumin 4.1 (3.5-5.0) g/dL Vitamin B12 499 (200-900) pg/mL Folate 7.9 (> or = 4.0) ng/mL TSH 1.86 (0.32-4.0) uIU/mL CSF Tube Number 2 CSF Volume ML CSF Appearance CSF Color CSF WBC MM*3 CSF RBC MM*3 CSF Neutrophils % CSF Lymphocytes % CSF Monocytes % % CSF Appearance (b) CSF Glucose mg/dL CSF Total Protein (15-45) mg/dL CSF C.neoform/gat PCR (Not Detect.) CSF CMV DNA (PCR) (Not Detect.) CSF Enterovirus (PCR) (Not Detect.) CSF E. coli K1 (PCR) (Not Detect.) CSF H. influenzae (PCR) (Not Detect.) CSF HSV I (PCR) (Not Detect.) CSF HSV II (PCR) (Not Detect.) CSF HHV 6 (PCR) (Not Detect.) CSF L.monocytogenes PCR (Not Detect.) CSF N. meningitidis PCR (Not Detect.) CSF Parechovirus (PCR) (Not Detect.) CSF S. agalactiae (PCR) (Not Detect.) CSF S. pneumoniae (PCR) (Not Detect.) CSF VZV (PCR) (Not Detect.) Influenza Type A (PCR) NEGATIVE (Negative) Influenza Type B (PCR) NEGATIVE (Negative) RSV RNA Qual (PCR) NEGATIVE (Negative) SARS-CoV-2 RNA (RT-PCR) NEGATIVE (Negative) 12/25/24 12/25/24 12/25/24 Range/Units 21:45 21:45 21:45 WBC (4.8-10.8) X10*3/uL RBC (4.20-5.50) X10*6/uL Hgb (12.0-16.0) g/dl Hct (37.0-47.0) % MCV (80.0-98.0) fL MCH (27.0-33.0) pg MCHC (31.0-35.0) g/dl RDW (11.0-16.0) % Plt Count (160-400) X10*3/uL MPV (9.4-12.3) fL Immature Gran % (Auto) (0.0-0.4) % Neut % (Auto) (45-73) % Lymph % (Auto) (20-40) % [place] % (Auto) (2-11) % Eos % (Auto) (0-4) % Baso % (Auto) (0-2) % Lymph # (Auto) (1.2-4.9) X10*3/uL [place] # (Auto) (0.1-1.2) X10*3/uL Eos # (Auto) (0.0-0.4) X10*3/uL Baso # (Auto) (0.0-0.2) X10*3/uL Abs Immat Gran (auto) (0.00-0.03) X10*3/uL Absolute Neuts (auto) (2.0-8.3) x10*3/uL Absolute Nucleated RBC (0.0-0.012) X10*3/uL Nucleated RBC % (auto) (0.0-0.2) /100WBC PT (11.2-13.5) SEC INR (0.9-1.1) Sodium (135-145) mmol/L Potassium (3.3-5.1) mmol/L Chloride (96-108) mmol/L Carbon Dioxide (22-29) mmol/L Anion Gap (12-20) BUN (9-16) mg/dL Creatinine (0.5-1.4) mg/dL Estim Creat Clear Calc Estimated GFR Random Glucose (60-115) mg/dL Calcium (8.4-10.2) mg/dL Magnesium (1.6-2.6) mg/dL Total Bilirubin (0.0-1.0) mg/dL Direct Bilirubin (0.0-0.5) mg/dL AST (5-31) U/L ALT (0-31) U/L Alkaline Phosphatase (39-117) U/L Total Creatine Kinase (26-140) U/L Troponin I High Sens (<3.5-17.0) ng/L C-Reactive Protein (< or = 0.50) mg/dL Total Protein (6.5-8.0) g/dL Albumin (3.5-5.0) g/dL Vitamin B12 (200-900) pg/mL Folate (> or = 4.0) ng/mL TSH (0.32-4.0) uIU/mL CSF Tube Number 4 1 CSF Volume 1.0 1.0 ML CSF Appearance CLEAR CSF Color CSF WBC MM*3 CSF RBC MM*3 CSF Neutrophils % CSF Lymphocytes % CSF Monocytes % % CSF Appearance (b) CSF Glucose mg/dL CSF Total Protein (15-45) mg/dL CSF C.neoform/gat PCR (Not Detect.) CSF CMV DNA (PCR) (Not Detect.) CSF Enterovirus (PCR) (Not Detect.) CSF E. coli K1 (PCR) (Not Detect.) CSF H. influenzae (PCR) (Not Detect.) CSF HSV I (PCR) (Not Detect.) CSF HSV II (PCR) (Not Detect.) CSF HHV 6 (PCR) (Not Detect.) CSF L.monocytogenes PCR (Not Detect.) CSF N. meningitidis PCR (Not Detect.) CSF Parechovirus (PCR) (Not Detect.) CSF S. agalactiae (PCR) (Not Detect.) CSF S. pneumoniae (PCR) (Not Detect.) CSF VZV (PCR) (Not Detect.) Influenza Type A (PCR) (Negative) Influenza Type B (PCR) (Negative) RSV RNA Qual (PCR) (Negative) SARS-CoV-2 RNA (RT-PCR) (Negative) 12/25/24 12/25/24 12/25/24 Range/Units 21:45 21:45 21:45 WBC (4.8-10.8) X10*3/uL RBC (4.20-5.50) X10*6/uL Hgb (12.0-16.0) g/dl Hct (37.0-47.0) % MCV (80.0-98.0) fL MCH (27.0-33.0) pg MCHC (31.0-35.0) g/dl RDW (11.0-16.0) % Plt Count (160-400) X10*3/uL MPV (9.4-12.3) fL Immature Gran % (Auto) (0.0-0.4) % Neut % (Auto) (45-73) % Lymph % (Auto) (20-40) % [place] % (Auto) (2-11) % Eos % (Auto) (0-4) % Baso % (Auto) (0-2) % Lymph # (Auto) (1.2-4.9) X10*3/uL [place] # (Auto) (0.1-1.2) X10*3/uL Eos # (Auto) (0.0-0.4) X10*3/uL Baso # (Auto) (0.0-0.2) X10*3/uL Abs Immat Gran (auto) (0.00-0.03) X10*3/uL Absolute Neuts (auto) (2.0-8.3) x10*3/uL Absolute Nucleated RBC (0.0-0.012) X10*3/uL Nucleated RBC % (auto) (0.0-0.2) /100WBC PT (11.2-13.5) SEC INR (0.9-1.1) Sodium (135-145) mmol/L Potassium (3.3-5.1) mmol/L Chloride (96-108) mmol/L Carbon Dioxide (22-29) mmol/L Anion Gap (12-20) BUN (9-16) mg/dL Creatinine (0.5-1.4) mg/dL Estim Creat Clear Calc Estimated GFR Random Glucose (60-115) mg/dL Calcium (8.4-10.2) mg/dL Magnesium (1.6-2.6) mg/dL Total Bilirubin (0.0-1.0) mg/dL Direct Bilirubin (0.0-0.5) mg/dL AST (5-31) U/L ALT (0-31) U/L Alkaline Phosphatase (39-117) U/L Total Creatine Kinase (26-140) U/L Troponin I High Sens (<3.5-17.0) ng/L C-Reactive Protein (< or = 0.50) mg/dL Total Protein (6.5-8.0) g/dL Albumin (3.5-5.0) g/dL Vitamin B12 (200-900) pg/mL Folate (> or = 4.0) ng/mL TSH (0.32-4.0) uIU/mL CSF Tube Number CSF Volume ML CSF Appearance BLOODY CSF Color COLORLESS RED CSF WBC 0 3 MM*3 CSF RBC 84 MM*3 CSF Neutrophils % CSF Lymphocytes % CSF Monocytes % % CSF Appearance (b) CSF Glucose mg/dL CSF Total Protein (15-45) mg/dL CSF C.neoform/gat PCR (Not Detect.) CSF CMV DNA (PCR) (Not Detect.) CSF Enterovirus (PCR) (Not Detect.) CSF E. coli K1 (PCR) (Not Detect.) CSF H. influenzae (PCR) (Not Detect.) CSF HSV I (PCR) (Not Detect.) CSF HSV II (PCR) (Not Detect.) CSF HHV 6 (PCR) (Not Detect.) CSF L.monocytogenes PCR (Not Detect.) CSF N. meningitidis PCR (Not Detect.) CSF Parechovirus (PCR) (Not Detect.) CSF S. agalactiae (PCR) (Not Detect.) CSF S. pneumoniae (PCR) (Not Detect.) CSF VZV (PCR) (Not Detect.) Influenza Type A (PCR) (Negative) Influenza Type B (PCR) (Negative) RSV RNA Qual (PCR) (Negative) SARS-CoV-2 RNA (RT-PCR) (Negative) 12/25/24 Range/Units 21:45 WBC (4.8-10.8) X10*3/uL RBC (4.20-5.50) X10*6/uL Hgb (12.0-16.0) g/dl Hct (37.0-47.0) % MCV (80.0-98.0) fL MCH (27.0-33.0) pg MCHC (31.0-35.0) g/dl RDW (11.0-16.0) % Plt Count (160-400) X10*3/uL MPV (9.4-12.3) fL Immature Gran % (Auto) (0.0-0.4) % Neut % (Auto) (45-73) % Lymph % (Auto) (20-40) % [place] % (Auto) (2-11) % Eos % (Auto) (0-4) % Baso % (Auto) (0-2) % Lymph # (Auto) (1.2-4.9) X10*3/uL [place] # (Auto) (0.1-1.2) X10*3/uL Eos # (Auto) (0.0-0.4) X10*3/uL Baso # (Auto) (0.0-0.2) X10*3/uL Abs Immat Gran (auto) (0.00-0.03) X10*3/uL Absolute Neuts (auto) (2.0-8.3) x10*3/uL Absolute Nucleated RBC (0.0-0.012) X10*3/uL Nucleated RBC % (auto) (0.0-0.2) /100WBC PT (11.2-13.5) SEC INR (0.9-1.1) Sodium (135-145) mmol/L Potassium (3.3-5.1) mmol/L Chloride (96-108) mmol/L Carbon Dioxide (22-29) mmol/L Anion Gap (12-20) BUN (9-16) mg/dL Creatinine (0.5-1.4) mg/dL Estim Creat Clear Calc Estimated GFR Random Glucose (60-115) mg/dL Calcium (8.4-10.2) mg/dL Magnesium (1.6-2.6) mg/dL Total Bilirubin (0.0-1.0) mg/dL Direct Bilirubin (0.0-0.5) mg/dL AST (5-31) U/L ALT (0-31) U/L Alkaline Phosphatase (39-117) U/L Total Creatine Kinase (26-140) U/L Troponin I High Sens (<3.5-17.0) ng/L C-Reactive Protein (< or = 0.50) mg/dL Total Protein (6.5-8.0) g/dL Albumin (3.5-5.0) g/dL Vitamin B12 (200-900) pg/mL Folate (> or = 4.0) ng/mL TSH (0.32-4.0) uIU/mL CSF Tube Number CSF Volume ML CSF Appearance CSF Color CSF WBC MM*3 CSF RBC 505 MM*3 CSF Neutrophils 3 % CSF Lymphocytes 3 % CSF Monocytes % 1 % CSF Appearance (b) Clear, Colorless CSF Glucose 60 mg/dL CSF Total Protein 40.6 (15-45) mg/dL CSF C.neoform/gat PCR Not Detected (Not Detect.) CSF CMV DNA (PCR) Not Detected (Not Detect.) CSF Enterovirus (PCR) Not Detected (Not Detect.) CSF E. coli K1 (PCR) Not Detected (Not Detect.) CSF H. influenzae (PCR) Not Detected (Not Detect.) CSF HSV I (PCR) Not Detected (Not Detect.) CSF HSV II (PCR) Not Detected (Not Detect.) CSF HHV 6 (PCR) Not Detected (Not Detect.) CSF L.monocytogenes PCR Not Detected (Not Detect.) CSF N. meningitidis PCR Not Detected (Not Detect.) CSF Parechovirus (PCR) Not Detected (Not Detect.) CSF S. agalactiae (PCR) Not Detected (Not Detect.) CSF S. pneumoniae (PCR) Not Detected (Not Detect.) CSF VZV (PCR) Not Detected (Not Detect.) Influenza Type A (PCR) (Negative) Influenza Type B (PCR) (Negative) RSV RNA Qual (PCR) (Negative) SARS-CoV-2 RNA (RT-PCR) (Negative) Independent Interpretation I performed an independent interpretation of an: EKG, Plain X-Ray (No compression fracture) and CT Scan (No new stroke or space-occupying lesion) Interpretation: Rate: 82 Rhythm: Normal sinus rhythm [place]: Normal Normal P waves. Normal FRAN. Normal QRS complex. ST T wave : T-wave inversion in III and AVF but no ST-elevation qTC: 450 prior studies: No change from prior The study has been interpreted contemporaneously by me. . Radiology Impression Discussion of test interpretation with radiology: I have reviewed the radiologist's reading. Independent Historian Clinical information obtained from an independent historian. History obtained from or confirmed by: Other (Daughter) External Record Review External record reviewed: Outpatient record Discharge Plan Discharge Clinical Impression: Weakness, Paresthesia Patient Disposition: Home, Self-Care Instructions: Paresthesia (ED), Weakness (ED), Lumbar Puncture (ED) Additional Instructions: Your labs were reassuring, your CT head showed no stroke or mass, your flu/RSV/COVID swab was negative Your spinal fluid did not show any active signs of infection and had normal protein which goes against abnormal Guillain-[place] syndrome At this time monitor symptoms if anything changes worsens or returns please seek immediate medical care If you have a severe headache in the next few days particularly when he stand that does not respond to Tylenol please return to the emergency department as this may require further treatment with IV fluids, IV medications, a blood patch as discussed prior to the procedure CSF panel is negative for meningitis panel encephalitis panel XR/XR lumbar spine 2-3V IMPRESSION: Mild scoliosis, Multilevel degenerative disc disease, and facet osteoarthritis is similar to the prior study. Prescriptions: No Action atorvastatin 80 mg tablet 80 mg PO DAILY alendronate 70 mg tablet 70 mg PO MORENO@0630 clopidogrel 75 mg tablet 75 mg PO DAILY aspirin 81 mg tablet,chewable 81 mg PO DAILY metoprolol succinate 25 mg tablet extended release 24 hr 25 mg PO DAILY cholecalciferol (vitamin D3) 25 mcg (1,000 unit) capsule 25 mcg PO DAILY hydrochlorothiazide 12.5 mg tablet 12.5 mg PO DAILY prednisone 20 mg tablet 40 mg PO DAILY 5 Days Qty: 10 0RF cyclobenzaprine 10 mg tablet 10 mg PO BEDTIME PRN (Reason: muscle spasm) 9 Days Qty: 9 0RF acetaminophen [Tylenol] 325 mg capsule 325 mg PO QID PRN (Reason: pain) 7 Days Qty: 28 0RF lidocaine [Salonpas (lidocaine)] 4 % adhesive patch,medicated 1 patch topical DAILY PRN (Reason: pain) Qty: 15 0RF Rx Instructions: may leave on for up to 12 hrs Print Language: Welsh
--- NOTE | 2024-12-25 13:35 | ECG_ITS ---
Test Reason : SOB Blood Pressure : */* mmHG Vent. Rate : 82 BPM Atrial Rate : 82 BPM P-R Int : 138 ms QRS Dur : 92 ms QT Int : 386 ms P-R-T Axes : 69 31 8 degrees QTcB Int : 450 ms Sinus rhythm with occasional Premature ventricular complexes Possible Left atrial enlargement Possible Inferior infarct (cited on or before 05-Oct-2019) Abnormal ECG When compared with ECG of 25-Apr-2021 12:04, Premature ventricular complexes are now Present Referred By: Brooke Knight Electronically Signed By: Royer Loera
[2024-12-25 14:09] LABS: MANUAL DIFF FLAG NO
[2024-12-25 14:13] LABS: Hematocrit 37.5 % (37.0-47.0); Hemoglobin 12.4 g/dl (12.0-16.0); Imm Gran Abs Auto 0.01 X10*3/uL (0.00-0.03); Imm Gran Pct Auto 0.1 % (0.0-0.4); Lymphocytes Absolute Auto 2.5 X10*3/uL (1.2-4.9); Mean Corpuscular HGB Conc 33.1 g/dl (31.0-35.0); Mean Corpuscular Hemoglobin 29.8 pg (27.0-33.0); Mean Corpuscular Volume 90.1 fL (80.0-98.0); NRBC Abs Auto 0.000 X10*3/uL (0.0-0.012); NRBC Pct Auto 0.0 /100WBC (0.0-0.2); Platelet Count 156 X10*3/uL (160-400); Red Blood Count 4.16 X10*6/uL (4.20-5.50); White Blood Count 6.7 X10*3/uL (4.8-10.8)
[2024-12-25 14:25] LABS: Alanine Aminotransferase 29 U/L (0-31); Albumin Level 4.1 g/dL (3.5-5.0); Alkaline Phosphatase 85 U/L (39-117); Anion Gap 14 (12-20); Aspartate Amino Transferase 42 U/L (5-31); Blood Urea Nitrogen 21 mg/dL (9-16); Calcium 9.0 mg/dL (8.4-10.2); Carbon Dioxide 24 mmol/L (22-29); Chloride 109 mmol/L (96-108); Creatinine Clr Calc Pharmacy 40.5; Estimated Glomerular Filt Rate > 60; Magnesium 2.2 mg/dL (1.6-2.6); Potassium 3.8 mmol/L (3.3-5.1); Sodium 143 mmol/L (135-145); Total Protein 7.8 g/dL (6.5-8.0)
[2024-12-25 14:30] LABS: Troponin-I High Sensitivity 3.6 ng/L (<3.5-17.0)
[2024-12-25 14:46] LABS: Resp Syncy Virus RNA Qual PCR NEGATIVE (Negative); SARS COV2 PCR INHOUSE NEGATIVE (Negative)
[2024-12-25 16:00] VITALS: BP 150/70; PULSE 72; RESP 18; O2SAT 96
[2024-12-25 17:50] LABS: INTERNATIONAL NORM RATIO 0.9 (0.9-1.1); Prothrombin Time 11.6 SEC (11.2-13.5)
[2024-12-25 18:00] VITALS: BP 152/66; PULSE 78; RESP 18; O2SAT 97
[2024-12-25 18:42] LABS: Folate 7.9 ng/mL (> or = 4.0); Vitamin B12 499 pg/mL (200-900)
[2024-12-25] MEDS: Lidocaine HCl 1 % MPF 5 ML VIAL SUBCUT (18:49)
[2024-12-25 20:08] VITALS: BP 148/57; PULSE 84; TEMP 37.1; O2SAT 98
[2024-12-25 23:36] LABS: Red Blood Cell CSF 505 MM*3; White Blood Cell CSF 3 MM*3
[2024-12-25 23:38] LABS: Red Blood Cell CSF 84 MM*3; White Blood Cell CSF 0 MM*3
[2024-12-26 00:42] VITALS: BP 104/56; PULSE 68; RESP 18; TEMP 36.4; O2SAT 99
[2024-12-26 00:53] VITALS: BP 104/56; PULSE 68; RESP 18; TEMP 36.4; O2SAT 99
--- NOTE | 2024-12-26 00:53 | PC.NURSE ---
This RN assumed pt care @ 2300. Pt a&ox4, no signs of distress. Pt denies pain at this time Pts daughter at bedside. Plan of care ongoing.
[2025-01-24 14:09] LABS: Lymphocytes CSF 43 %; Neutrophils CSF 43 %
== END 2024-12-26 00:45 | disposition home or self-care (01) ==
PROVIDERS: Physician Assistant Medical; Emergency Provider Emergency Medicine; PCP Internal Medicine
DX: R20.0 Anesthesia of skin (principal); R05.9 Cough, unspecified; I25.10 Atherosclerotic heart disease of native coronary artery without angina pectoris; M79.10 Myalgia, unspecified site; R26.0 Ataxic gait; R94.31 Abnormal electrocardiogram [ECG] [EKG]; I10 Essential (primary) hypertension; R06.02 Shortness of breath; Z79.899 Other long term (current) drug therapy; Z03.818 Encounter for observation for suspected exposure to other biological agents ruled out
CPT/HCPCS: 36415; 62270; 70450; 72100; 80048; 80076; 82550; 82607; 82746; 82945; 83735; 84157; 84443; 84484; 85025; 85610; 86140; 87015; 87070; 87205; 87476; 87483; 87637; 89051; 93005; 99285; J2003

== ENCOUNTER → 2024-12-25 13:35 | Outpatient (BNV) | payer MEDICAID, SELFPAY | PROVIDERS: Emergency Provider Emergency Medicine; PCP Internal Medicine; Visit Provider Internal Medicine Cardiovascular Disease | DX: I49.3 Ventricular premature depolarization (principal) | CPT/HCPCS: 93010 ==

== ENCOUNTER → 2024-12-25 16:20 | Outpatient (BNV) | payer MEDICAID, SELFPAY | PROVIDERS: Emergency Provider Emergency Medicine; PCP Internal Medicine; Visit Provider Radiology Diagnostic Radiology | DX: R27.0 Ataxia, unspecified (principal); R53.1 Weakness; M51.370 Other intervertebral disc degeneration, lumbosacral region with discogenic back pain only; M41.87 Other forms of scoliosis, lumbosacral region | CPT/HCPCS: 70450; 72100 ==